=== PATIENT | female | born 1935 | race Caucasian/White ===

== ENCOUNTER → 2017-07-04 | Outpatient (CLI) | payer OTHER ==
--- NOTE | 2017-07-04 12:42 | VAS ---
STUDY: CAROTID DUPLEX DOPPLER EXAMINATION History: Carotid bruit. Comparison: None. Technique: Multiple campoverde scale and color flow Doppler images of the right and left carotid arterial system were obtained. The vertebral arterial system was evaluated as well. Findings: Normal color flow Doppler is seen throughout the right and left carotid arterial system. There is mild atherosclerotic plaque involving the right CCA and carotid bulb. There is mild atheros clerotic plaque involving the left common carotid artery and carotid bulb. There is no evidence of hemodynamically significant stenosis in the internal carotid arteries on eit her side based on velocity criteria. Vertebral artery flow is antegrade on the left. The right vertebral artery is not visualized. IMPRESSION: 1. No evidence of hemodynamically significant stenosis in the internal carotid arteries. 2. Atherosclerotic plaque in the common carotid arteries and carotid bulbs bilaterally. Reported By:
== END ==
LOC: RAD 09:50
PROVIDERS: ATTEND Nurse Practitioner
DX: R09.89 Other specified symptoms and signs involving the circulatory and respiratory systems (principal)
CPT/HCPCS: 93880